=== PATIENT | female | born 1980 | race Caucasian/White ===

== ENCOUNTER 2016-11-08 07:43 | Day surgery (SDC) | payer BC ==
[~2016-11-08 07:43] MED LIST: Lactated Ringers 1,000 ML IV SCH; Sodium Chloride 0.9% 10 ML Syringe FLUSH PRN; Sodium Chloride 0.9% 2.5 ML Syringe FLUSH PRN
[2016-11-08] MEDS ORDERED: Midazolam 1 MG/ML 2 ML SDV ONE (07:47)
[2016-11-08] MEDS ORDERED: fentaNYL 100 MCG/2 ML SDV ONE (07:47)
[2016-11-08] MEDS ORDERED: Propofol 200 MG/20 ML SDV ONE (07:47)
[2016-11-08] MEDS ORDERED: Lidocaine 2% 5 ML SDV ONE (07:47)
--- NOTE | 2016-11-08 08:02 | PCM.PREANE ---
Preanesthetic Assessment - Anesthesia/Transfusion/Family Hx Anesthesia History: Prior Anesthesia Without Reaction Family History of Anesthesia Reaction: No Transfusion History: No Prior Transfusion(s) Intubation History: Unknown - Review of Systems General: No Symptoms Pulmonary: No Symptoms Cardiovascular: No Symptoms Gastrointestinal: Abdominal pain, Constipation Neurological: No Symptoms Other: Reports: None - Physical Assessment Height: 1.8 m Weight: 87.997 kg ASA Class: 2 Mental Status: Alert & Oriented x3 Airway Class: Mallampati = 2 Dentition: Reports: Normal Dentition Thyro-Mental Finger Breadths: 3 Mouth Opening Finger Breadths: 3 ROM/Head Extension: Full Lungs: Clear to auscultation, Normal respiratory effort Cardiovascular: Regular Rate, Regular Rhythm - Allergies Allergies/Adverse Reactions: Allergies Allergy/AdvReac Type Severity Reaction Status Date / Time amoxicillin Allergy Rash Verified 11/06/16 11:46 Penicillins Allergy Rash Verified 11/06/16 11:46 Sulfa (Sulfonamide Allergy Rash Verified 11/06/16 11:46 Antibiotics) - Blood Blood Available: No - Anesthesia Plan Pre-Op Medication Ordered: None - Acknowledgements Anesthesia Type Planned: MAC Pt an Appropriate Candidate for the Planned Anesthesia: Yes Alternatives and Risks of Anesthesia Discussed w Pt/Guardian: Yes Pt/Guardian Understands and Agrees with Anesthesia Plan: Yes PreAnesthesia Questionnaire Gastrointestinal History: Reports: GERD Genitourinary History: Reports: None - Past Surgical History Head Surgeries/Procedures: Reports: None HEENT Surgical History: Reports: Oral Surgery GI Surgical History: Reports: Cholecystectomy Female Surgical History: Reports: Cervical Cryotherapy, Tubal Ligation Dermatological Surgical History: Reports: Other (See Below) - SUBSTANCE USE Smoking Status *Q: Current Every Day Smoker (< 1ppd) Tobacco Use Within Last Twelve Months: Cigarettes Recreational Drug Use History: No - HOME MEDS Home Medications: Home Meds Omeprazole 20 mg PO BID 11/06/16 [History] - CURRENT (IN HOUSE) MEDS Current Meds: Current Medications Lactated Ringer's (Ringers, Lactated) 1,000 mls @ 125 mls/hr IV ASDIRECTED MARGARETH Sodium Chloride (Saline Flush) 10 ml FLUSH ASDIRECTED PRN PRN Reason: Keep Vein Open Sodium Chloride (Saline Flush) 2.5 ml FLUSH ASDIRECTED PRN PRN Reason: Keep Vein Open Discontinued Medications Fentanyl (Sublimaze) Confirm Administered Dose 100 mcg .ROUTE .STK-MED ONE Stop: 11/08/16 07:48 Lidocaine (Xylocaine-Mpf 2%) Confirm Administered Dose 10 ml .ROUTE .STK-MED ONE Stop: 11/08/16 07:48 Midazolam HCl (Versed 1 Mg/Ml) Confirm Administered Dose 2 mg .ROUTE .STK-MED ONE Stop: 11/08/16 07:48 Propofol (Diprivan 20 Ml) Confirm Administered Dose 400 mg .ROUTE .STK-MED ONE Stop: 11/08/16 07:48
--- NOTE | 2016-11-08 09:01 | PCM.OPNOTE ---
- General Post-Op/Procedure Note Date of Surgery/Procedure: 11/08/16 Operative Procedure(s): Diagnostic EGD and colonoscopy Findings: Gastritis with superficial ulceration, Duodenitis, and diverticulosis Pre Op Diagnosis: Epigastric pain, chronic constipation Post-Op Diagnosis: Gastritis, duodenitis, diverticulosis Anesthesia Technique: [facility] – [place] Primary Surgeon: Hanna Beck Condition: Good
--- NOTE | 2016-11-08 09:12 | PCM.POSTAN ---
POST ANESTHESIA ASSESSMENT - MENTAL STATUS Mental Status: alert, oriented - RESPIRATORY Respiratory Status: respiratory rate WNL, airway patent, O2 saturation stable - CARDIOVASCULAR CV Status: pulse rate WNL, blood pressure stable - GASTROINTESTINAL GI Status: no symptoms - POST OP HYDRATION Hydration Status: adequate & stable
[2016-11-08 09:42] VITALS: BP 115/72
--- NOTE | 2016-11-08 14:05 | OR ---
SURGEON: ADRIENNE GHOSH MD DATE OF PROCEDURE: 11/08/2016 PREOPERATIVE DIAGNOSES: Epigastric pain, chronic constipation. POSTOPERATIVE DIAGNOSIS: Gastritis and duodenitis, diverticulosis. PROCEDURE PERFORMED: Diagnostic esophagogastroduodenoscopy and colonoscopy. INSTRUMENT USED: Olympus endoscope and colonoscope. ANESTHESIA: MAC. EXTENT OF EXAM: To the second portion of duodenum during the endoscopic portion, to the cecum during the colonoscopic portion. PREPARATION: Good. LIMITATIONS: None. INDICATIONS FOR EXAMINATION: The patient is a 36-year-old female who presents with a severe epigastric pain and chronic constipation. She has been on omeprazole b.i.d. with no improvement in her symptoms. The decision was made to undergo a diagnostic EGD and colonoscopy to look for pathology that may indicate the reason for this epigastric pain and chronic constipation. We discussed the procedures as well as expected perioperative course. We discussed the risks, including bleeding, infection, damage to surrounding structures, including perforation. The patient verbalized understanding and wished to proceed. PROCEDURE IN DETAIL: The patient was brought to the endoscopy suite and placed in a beach chair position. A time-out was completed verifying the patient's name, age, date of , allergies, and procedure to be performed. A bite block was placed in the patient's mouth. Monitored anesthesia care was induced and oxygen was provided via nasal cannula throughout the procedure. After adequate sedation was achieved, I placed the Olympus endoscope in the patient's mouth and guided under direct visualization in the esophagus and down to the second portion of the duodenum. A photograph was taken at the second portion of duodenum which appeared normal. The scope was then pulled back. The duodenal bulb had diffuse signs of inflammation with no ulceration. A photograph was taken of this. The scope was brought into the stomach. The gastric mucosa appeared inflamed with several areas of very superficial ulceration. A photograph was taken of these as well as the pylorus and the esophageal hiatus. The esophageal hiatus appeared normal. Biopsies were taken of the antrum, body, and fundus of the gastric mucosa and sent for H. pylori testing. The scope was then brought into the esophagus and a photograph taken of the GE junction which appeared normal. The remainder of the esophageal mucosa appeared normal. The scope was removed from the patient and this portion of the procedure terminated. The patient was placed in the left lateral decubitus position. A digital rectal exam was performed. This was normal. A well lubricated colonoscope was inserted into the rectum and advanced under direct visualization to the level of the cecum. The cecum was identified by both visual and anatomic landmarks. A photograph was taken of the cecal cap as well as the scope retroflexed within the cecum. The scope was then fully withdrawn while examining the color, texture, anatomy, and integrity mucosa from the cecum to the anal canal. The findings were consistent with mild diverticulosis in the sigmoid colon. The scope was then brought to the rectum and retroflexed to allow visualization of the anal canal opening. This appeared normal and a photograph was taken. The scope was then straightened out and removed from the patient. The cecum to anus time was 7 minutes. The patient was transferred to the recovery room in stable condition. ENDOSCOPIC DIAGNOSIS: Gastritis, duodenitis, diverticulosis. RECOMMENDATIONS: We will switch the patient to pantoprazole 40 mg a.c. and give her Carafate. We will have the patient follow up in 2 weeks to discuss these findings and what to do for her chronic constipation. JIGNA ALDRICH /[id number]
== END 2016-11-08 09:35 | disposition home or self-care (01) ==
LOC: MW.SDS 07:43
PROVIDERS: ATTEND Surgery
DX: K29.50 Unspecified chronic gastritis without bleeding (principal); K57.30 Diverticulosis of large intestine without perforation or abscess without bleeding; K31.89 Other diseases of stomach and duodenum; Z88.0 Allergy status to penicillin; Z88.1 Allergy status to other antibiotic agents; Z88.2 Allergy status to sulfonamides; Z79.899 Other long term (current) drug therapy; Z90.49 Acquired absence of other specified parts of digestive tract; Z98.890 Other specified postprocedural states; Z98.51 Tubal ligation status; F17.200 Nicotine dependence, unspecified, uncomplicated
CPT/HCPCS: 43239; 81025; 88305; 88312; J2250; J3010; J7120; 00740; J2704